=== PATIENT | male | born 2000 | race Caucasian/White ===

== ENCOUNTER 2018-05-08 15:06 | Emergency (ER) | payer BC ==
--- NOTE | 2018-05-08 15:18 | ER Report ---
History and Physical Time Seen By MD: 15:18 Hx. of Stated Complaint: pt thinks he has a piece of beef stuck in his throat. HPI/ROS CHIEF COMPLAINT: Retained food bolus HISTORY OF PRESENT ILLNESS: 17-year-old male patient presents to emergency room with complaint of a routine food bolus in his soft is. Patient states that couple hours ago he was eating some beef and when he swallowed he is not able to get it to pass completely. Patient states that this is happened in the past 2 or 3 times. He states in the past that he's been able take a shower and has been able to get it to come out. Patient states that today he is not been able to get it to come out. He denies having any shortness of breath, any nausea or vomiting. Patient states that he has no pain at this time. Allergies: Coded Allergies: No Known Drug Allergies (Unverified , 05/08/18) Past Medical/Surgical History Patient has no pertinent medical or surgical history. Reviewed Nurses Notes: Yes Constitutional Vital Sign - Last 24 Hours 05/08/18 05/08/18 15:09 16:00 Temp 97.7 Pulse 109 Resp 16 18 B/P (MAP) 132/108 147/87 (107) Pulse Ox 96 98 O2 Delivery Room Air Room Air Physical Exam General appearance: Alert no distress. Respiratory: Chest is non tender, lungs are clear to auscultation. Cardiac: Regular rate and rhythm ENT: Tympanic membranes are pearly-kebede, auditory canals are patent, mucous membranes are moist. Patient is unable to swallow his own saliva. DIFFERENTIAL DIAGNOSIS: After history and physical exam differential diagnosis was considered for retained food bolus. Medical Decision Making ED Course/Re-evaluation ED Course Patient was admitted to an exam room, history and physical were obtained. Differential diagnoses were considered. On examination lungs are clear, heart is regular, abdomen soft nontender. Patient was not able to swallow his own saliva. An IV was started and patient was given 1 mg of glucagon. We waited approximately 20 minutes and went and reevaluated patient. Patient states he is able to vomit up the food bolus. I did give patient a cocaine he was able to drink that without any difficulties. We will go ahead and discharge him home at this time. He is to make sure that he cut his meat into really small pieces prior to eating can make sure that he chews well. Patient states he does have a narrow esophagus and states that his father's had his esophagus stretched in the past. Encouraged him to follow-up with Dr. Torres for EGD to evaluate his esophagus and possible stricture. Patient verbalized understanding and agreement with plan. Decision to Disposition Date: May 08, 2018 Decision to Disposition Time: 16:03 Depart Departure Latest Vital Signs Vital Signs Date Time Temp Pulse Resp B/P (MAP) Pulse Ox O2 Delivery O2 Flow Rate FiO2 05/08/18 16:00 18 147/87 (107) 98 Room Air 05/08/18 15:09 97.7 109 Impression: Primary Impression: FB esophagus Condition: Improved Disposition: HOME OR SELF-CARE Referrals: PATRICK TORRES MD Patient Instructions: GENERAL ER DISCHARGE INSTRUCTIONS Additional Instructions: Increase fluid intake. Get plenty of rest. Follow up with your primary care provider in the next week. I would encourage you to follow up with a surgeon to have an EGD done to look for esophageal stricture. Cut your meat up into smaller pieces. Problem Qualifiers Primary Impression: FB esophagus Encounter type: initial encounter Qualified Codes: T18.108A - Unspecified foreign body in esophagus causing other injury, initial encounter DEAN LANIER May 08, 2018 15:18
[2018-05-08] MEDS ORDERED: GLUCAGON 1 MG KIT IV ONE (15:25)
[2018-05-08 16:00] VITALS: BP 147/87
== END 2018-05-08 16:10 | disposition home or self-care (01) ==
LOC: ER 15:20
DX: T18.128A Food in esophagus causing other injury, initial encounter (principal)
CPT/HCPCS: 99283; J1610

== ENCOUNTER 2018-09-19 08:36 | Emergency (ER) | payer BC ==
[2018-09-19 08:41] VITALS: BP 136/68
--- NOTE | 2018-09-19 08:41 | ER Report ---
History and Physical Time Seen By MD: 08:41 HPI/ROS CHIEF COMPLAINT: Suspected esophageal foreign body HISTORY OF PRESENT ILLNESS: Patient is a 18-year-old male here with complaints of esophageal foreign body after breakfast. Patient suspects that he had a piece of ham stuck in his esophagus for the past 2 hours. Patient has had prior episodes of esophageal foreign bodies. Patient did complain of difficulty clearing secretions. Denies prior history of endoscopy, caustic ingestions. He does report that his father has a similar issue. Denies fevers, chills, chest pain, shortness of breath. REVIEW OF SYSTEMS: Constitutional: No fever, no chills. Eyes: No discharge. ENT: + Foreign body sensation Cardiovascular: No chest pain, no palpitations. Respiratory: No cough, no shortness of breath. Gastrointestinal: No abdominal pain, no vomiting. Genitourinary: No hematuria. Musculoskeletal: No back pain. Skin: No rashes. Neurological: No headache. Allergies: Coded Allergies: No Known Drug Allergies (Unverified , 09/19/18) Home Meds No Active Prescriptions or Reported Meds Constitutional Physical Exam General Appearance: The patient is alert, has no immediate need for airway protection and no signs of toxicity. Uncomfortable appearing Eyes: Pupils equal and round no pallor or injection. ENT, Mouth: Mucous membranes are moist. No erythema of the posterior oropharynx, no foreign body visualized Respiratory: There are no retractions, lungs are clear to auscultation. Cardiovascular: Regular rate and rhythm. Gastrointestinal: Abdomen is soft and non tender, no masses, bowel sounds normal. Neurological: No focal neurological deficits Skin: Warm and dry, no rashes. Musculoskeletal: Neck is supple non tender. Extremities are nontender, nonswollen and have full range of motion. DIFFERENTIAL DIAGNOSIS: After history and physical exam differential diagnosis was considered for esophageal foreign body, esophageal trauma, ulceration, pill esophagitis, stricture Medical Decision Making ED Course/Re-evaluation ED Course Patient is a 18-year-old male here with complaints of suspected esophageal foreign body which seemingly has resolved by the time of evaluation. Patient was able tolerate oral intake without issue. He has had previous episodes and I did discuss with him the need for endoscopy. Patient reports that he is going to be evaluated when he returns home over break. Return precautions were provided. Patient was hemodynamically stable throughout course. Decision to Disposition Date: Sep 19, 2018 Decision to Disposition Time: 10:14 Depart Departure Latest Vital Signs Impression: Primary Impression: FB esophagus Condition: Improved Disposition: HOME OR SELF-CARE New Scripts No Active Prescriptions or Reported Meds Patient Instructions: Esophageal Foreign Body (GEN) Additional Instructions: Please drink plenty of water. Please follow-up with gastroenterology or surgery in order to obtain an endoscopy to evaluate your esophagus. Please return immediately if you develop recurrent episodes, shortness breath, inability to clear secretions. ANIKA RODGERS DO Sep 19, 2018 08:41
[2018-09-19] MEDS ORDERED: GLUCAGON 1 MG KIT IM ONE (08:50)
[2018-09-19] MEDS ORDERED: NS(*) 0.9% 1000 ML BAG 1,000 ML IV ONE (08:50)
[2018-09-19] MEDS ORDERED: METOCLOPRAMIDE 10 MG/2 ML SDV IVP ONE (08:50)
== END 2018-09-19 10:20 | disposition home or self-care (01) ==
LOC: ER 09:01
DX: T18.128A Food in esophagus causing other injury, initial encounter (principal)
CPT/HCPCS: 99283; J7030

== ENCOUNTER 2018-11-11 03:23 | Day surgery (SDC) | payer BC ==
[2018-11-11] VITALS (9 sets, daily range): BP systolic 90–132; BP diastolic 44–82
[~2018-11-11] VITALS: Ht 182.9 cm; Wt 76.2 kg
[~2018-11-11 03:23] MED LIST: PANT40TA65 PO
[2018-11-11] MEDS ORDERED: GLYCOPYRROLATE 0.2MG/ML 1 ML INJ IVP ONE (07:05)
[2018-11-11] MEDS ORDERED: NORMOSOL R SOLN(*) 1000 ML BAG 1,000 ML IV PRN (07:30)
[2018-11-11] MEDS ORDERED: LIDOCAINE/SOD BICARB 8.4% SYR ID ONE (07:30)
--- NOTE | 2018-11-11 09:50 | RADIOLOGY IMAGING REPORT ---
FACILITY: [facility] - [place] PATIENT NAME: Oscar Duran : 2000 MR: [id number] V: [id number] EXAM DATE: ORDERING PHYSICIAN: DILIP BENAVIDES TECHNOLOGIST: Location: [facility] [place] Patient: Oscar Duran : 2000 Visit/Account:[id number] Date of Sevice: 11/11/2018 Chest single view: HISTORY: Status post EGD and dilation COMPARISON: None FINDINGS: Portable chest 0846 hours: Cardiomediastinal silhouette is within normal limits. There is no infiltrate or pleural effusion. No pneumothorax. Pulmonary vasculature is normal. There is no o bvious mediastinal air. IMPRESSION: No evidence of acute cardiopulmonary abnormality. Report Dictated By: Alia Skinner MD at 11/11/2018 9:43 AM Report E-Signed By: Alia Skinner MD at 11/11/2018 9:44 AM WSN:[id number]
--- NOTE | 2018-11-11 10:10 | Short(Outpt) Discharge Summary ---
Discharge Summary Reason for Hosp/Final Diag: (1) FB esophagus Status: Acute Hospital Course & Plan: pt presented for endoscopy. he tolerated the procedure well. he will be discharged home when criteria met. Departure Discharge to: Home Discharge Instructions Home Meds Reported Medications Pantoprazole Sodium (PANTOPRAZOLE SODIUM) 40 Mg Tablet., 40 MG PO QDAY, TAB.SR 10/12/18 Diet: Regular Special Instructions: CALL DR. BENAVIDES FOR ANY PROBLEM/CONCERNS [phone] 'S OFFICE WILL CALL YOU IN 10 DAYS WITH YOUR BIOPSY RESULTS. CHEW YOUR FOOD WELL. DILIP BENAVIDES Nov 11, 2018 10:10
== END 2018-11-11 10:20 | disposition home or self-care (01) ==
LOC: OR 03:23
PROVIDERS: ATTEND Surgery
DX: K22.2 Esophageal obstruction (principal)
CPT/HCPCS: 43239; 43249; 71045; 88305; 88313; C1726; J3490